=== PATIENT | male | born 1985 | race Caucasian/White ===

== ENCOUNTER 2021-04-07 10:47 | Outpatient (CLI) | payer OTHER, SELFPAY ==
--- NOTE | 2021-04-07 10:55 | MR_ITS ---
WS: [id number] MRI RIGHT SHOULDER NONCONTRAST TECHNIQUE: Sagittal T2, coronal T1, T2 and proton density imaging. Axial gradient PDE imaging. CLINICAL INFORMATION: M75.41 - Impingement syndrome of right shoulder COMPARISON: None. FINDINGS: Some images degraded by patient motion. Moderate degenerative arthritis AC joint with mild downsloping of the acromion with subacromial spurr ing. Distal clavicle appears normal. Moderate edema at the AC joint. Mild chronic thinning with slig ht tendinopathy distal supraspinatus. Normal infraspinatus. Normal teres minor and subscapularis. No acute or high-grade rotator cuff tears. Normal biceps tendon in the bicipital groove. Normal biceps labral anchor. Normal glenoid labrum. Gle noid labrum appears grossly intact. Normal bone marrow signal in the glenoid and humerus. MR/MR shoulder RT wo con* [id number] IMPRESSION: 1. Moderate degenerative arthritis AC joint with hypertrophic changes and lane a somewhat advanced for patient this age. Slight subacromial spurring with slig ht impingement on the underlying supraspinatus. 2. Tendinopathy distal supraspinatus. No high-grade rotator cuff tears. Rotato r cuff is otherwise intact. 3. Normal biceps tendon in the bicipital groove. Normal biceps labral anchor. 4. Normal bone marrow signal.
== END 2021-04-07 10:48 | disposition home or self-care (01) ==
LOC: RADWPI 10:50
PROVIDERS: PCP Family Medicine; Visit Provider Specialist
DX: M75.41 Impingement syndrome of right shoulder (principal); M19.011 Primary osteoarthritis, right shoulder; R60.0 Localized edema
CPT/HCPCS: 73221

== ENCOUNTER → 2021-12-13 14:21 | Outpatient (BNVA) | payer OTHER, SELFPAY | PROVIDERS: PCP Family Medicine; Visit Provider Specialist | DX: F17.210 Nicotine dependence, cigarettes, uncomplicated (principal); M75.81 Other shoulder lesions, right shoulder; M75.41 Impingement syndrome of right shoulder | CPT/HCPCS: 73030; 99214 ==